=== PATIENT | female | born 1990 | race Caucasian/White ===

== ENCOUNTER 2024-12-09 14:14 | Outpatient (CLI) | payer OTHER, SELFPAY ==
[2024-12-09 10:12] LABS: HCT 30.5 % (36.0-46.0); HGB 10.2 g/dL (11.2-15.7); MCH 32.4 pg (27.0-33.0); MCHC 33.4 % (32.0-36.0); MCV 97 fL (80-95); MPV 8.3 fL (8.0-11.0); Platelet Count 198 10^3/uL (130-400); RBC 3.15 10^6/uL (3.93-5.22); RDW 13.3 % (11.7-14.6); RDW-SD 46.9 fL; WBC 14.01 10^3/uL (4.4-10.8)
== END 2024-12-09 14:15 | disposition home or self-care (01) ==
LOC: LBO 14:15
PROVIDERS: PCP Nurse Practitioner Family; Visit Provider Advanced Practice Midwife
DX: Z34.93 Encounter for supervision of normal pregnancy, unspecified, third trimester (principal); O09.523 Supervision of elderly multigravida, third trimester
CPT/HCPCS: 36415; 85027; 86787; 86850; 86900; 86901

== ENCOUNTER 2025-01-20 15:40 | Outpatient (REF) | payer OTHER, SELFPAY ==
[2025-01-20 16:26] LABS: Abs Immature Grans 0.20 10^3/uL (0.0-0.06); HCT 30.3 % (36.0-46.0); HGB 10.1 g/dL (11.2-15.7); Immature Grans % 1.4 %; MCH 32.0 pg (27.0-33.0); MCHC 33.3 % (32.0-36.0); MCV 96 fL (80-95); MPV 8.7 fL (8.0-11.0); Platelet Count 189 10^3/uL (130-400); RBC 3.16 10^6/uL (3.93-5.22); RDW 13.2 % (11.7-14.6); RDW-SD 47.2 fL; WBC 14.79 10^3/uL (4.4-10.8)
[2025-01-20 17:20] LABS: Ferritin 8 ng/mL (7-271)
[2025-01-20 18:19] LABS: Iron 88 ug/dL (50-170); Total Iron Binding Capacity 558 ug/dL (250-425); Transferrin Sat 16 % (15-50)
== END 2025-01-20 15:41 | disposition home or self-care (01) ==
LOC: LBN 15:40
PROVIDERS: PCP Nurse Practitioner Family; Visit Provider Obstetrics & Gynecology
DX: O99.013 Anemia complicating pregnancy, third trimester (principal); N93.9 Abnormal uterine and vaginal bleeding, unspecified; Z34.93 Encounter for supervision of normal pregnancy, unspecified, third trimester
CPT/HCPCS: 36415; 82728; 83540; 83550; 85025; 87081

== ENCOUNTER 2025-01-30 00:44 | Outpatient (CLI) | payer OTHER, SELFPAY ==
[2025-01-30 10:28] LABS: Total Iron Binding Capacity 528 ug/dL (250-425)
== END 2025-01-30 00:45 | disposition home or self-care (01) ==
LOC: LBO 00:44
PROVIDERS: PCP Nurse Practitioner Family; Visit Provider Obstetrics & Gynecology
DX: O99.013 Anemia complicating pregnancy, third trimester (principal)
CPT/HCPCS: 36415; 86850; 86900; 86901; 83550

== ENCOUNTER 2025-01-30 13:04 | Inpatient (IN) | payer OTHER, SELFPAY ==
--- NOTE | 2025-01-31 17:03 | W.ANESPRE ---
General Info Date of Service Date Performed: 02/01/25 Height: 5 ft 2 in Weight: 74 kg Body Mass Index (BMI): 29.8 Surgical Procedure: Operation Date: 02/01/25 07:40 Proposed Procedure Side Surgeon p Section, Possible Bi-Lat Salpingectomy Kathy Tracy, Meds Allergies and Home Medications Allergies Allergy/AdvReac Type Severity Reaction Status Date / Time No Known Allergies Allergy Verified 01/30/25 08:51 Home Medication ?Medication ?Instructions ?Recorded escitalopram oxalate 10 mg tablet 10 mg PO DAILY 06/17/24 fexofenadine 180 mg tablet 180 mg PO DAILY 06/17/24 vits 75-iron 28 mg-folic pkg PO 06/17/24 acid 800 mcg-omega3 440 mg oral pack (One Daily ) omeprazole 20 mg tablet,delayed 20 mg PO DAILY 10/18/24 release acetaminophen 325 mg tablet 325 mg PO ONCE PRN 12/09/24 calcium carbonate (Tums) 200 mg PO BID PRN 12/09/24 sennosides 8.6 mg capsule (senna) 8.6 mg PO DAILY PRN 12/09/24 ferrous sulfate 325 mg (65 mg 325 mg PO Q OTHER DAY 30 days #30 01/25/25 iron) tablet tabs docusate sodium 100 mg capsule 100 mg PO DAILY 01/27/25 folic acid 800 mcg tablet 800 mcg PO DAILY 01/27/25 Current Visit Medications: Current Medications Generic Name Dose Route Start Last Admin Trade Name Freq PRN Reason Stop Dose Admin Cefazolin Sodium/Dextrose 2 gm in 50 mls @ 100 mls/hr 02/01/25 06:00 Ancef Duplex IVPB 02/01/25 23:59 PREOP EDUAR Azithromycin 500 mg/ Sodium 250 mls @ 250 mls/hr 02/01/25 06:00 Chloride IVPB 02/01/25 23:59 PREOP EDUAR Ringer's Solution 1,000 mls @ 200 mls/hr 02/01/25 06:00 IV 02/01/25 23:59 INFUSION [facility] PFS Active Problems Active Problems: Problem Status Onset Code BRIP1 gene mutation positive Acute Z15. Genetic susceptibility to other disease Acute Z15. Generalized anxiety disorder Acute F41.1 Anemia affecting Acute O99.019 Elderly multigravida, currently Acute O09.529 History of delivery, currently Acute O34.219 Acute Z34.90 Medical History Medical History Ear fullness Nasal congestion Normal hearing exam Attempting to conceive Menorrhagia Endometriosis, unspecified Unspecified eustachian tube disorder, bilateral Eye disorder Surgical History Surgical History Status post hysteroscopic polypectomy 01/26/2024 at [facility] [[email or web address] Previous section Tobacco Smoking/Tobacco Use Status: Never Alcohol Alcohol Intake: never Prental History History 3 Para 1 Hx # Term Pregnancies 1 Multiple births 0 Hx # Pregnancies 0 Ectopic pregnancies 0 AB induced 0 Hx Number of Living Children 1 AB spontaneous 1 Past Pregnancies Del. Date GA/Weeks # Preg Succ Route Wgt Sex Labor Lgth Anesthesia Location Prov Complic 06/30/19 10 No 02/21/21 37 No Yes 3090.098 g Male 24 hrs [facility] [place] Delivery Date: 02/21/21 Last Updated by: Keisha Morales IOL for PROM, pit, epidural, c/s for arrest of dilation after 8 cm & decels, apgars 03/26/9, [place] Vital Signs and Lab Results Lab Results Complete Blood Count: WBC, (4.4-10.8) 14.79 10^3/uL H 01/20/25, 16:15 RBC, (3.93-5.22) 3.16 10^6/uL L 01/20/25, 16:15 Hgb, (11.2-15.7) 10.1 g/dL L 01/20/25, 16:15 Hct, (36.0-46.0) 30.3 % L 01/20/25, 16:15 Plt Count, (130-400) 189 10^3/uL 01/20/25, 16:15 Anesthesia Assessment and Plan Anesthesia History Personal History: No History of Anesthesia Complications Family History: No Family History of Anesthesia Complications Exercise Tolerance Exercise Tolerance: Metabolic Equivalents>4 Pertinent Negatives Pertinent Negatives: No Symptoms of GERD, No Major Cardiovascular Symptoms or Complaints, No Major Pulmonary Symptoms or Complaints and No History of CVA/TIA Cardiac & Pulmonary Exam Cardiac Exam: Normal S1/S2 Heart Sounds Pulmonary Exam: Clear Bilateral Breath Sounds Implantable Cardiac Device Does patient have a Pacemaker or an ICD?: No Airway Exam Known Difficult Airway: No Mallampati Class: 2 Mouth Opening: Normal (> 3cm) Thyromental Distance: Greater than 3 cm Neck Range of Motion: Full ROM Neck Circumference: Normal Teeth Condition: Normal Dentition ASA Classification ASA Score: ASA 2 Emergency Case?: No NPO Status NPO Status: NPO Clears >2 hours, Solids >8 hours Status Status: Not Relevant due to Medical History Anesthesia Plan Resuscitation Status: Full Code Anesthesia Technique: Spinal Anesthesia Airway Planned: Natural Airway Monitors Used: Standard Monitors
[2025-02-01] VITALS (49 sets, daily range): BP systolic 89–117; BP diastolic 45–74; PULSE 57–96; RESP 16–18; TEMP 36.6–36.9; O2SAT 95–100; BMI 29.8
[2025-02-01] MEDS: AZITHROMYCIN 500 MG in Normal Saline 250 ML 250 MG IVPB (06:39)
[2025-02-01] MEDS: Lactated Ringers 1,000 ML 200 ML IV ×2 (06:44→09:15)
--- NOTE | 2025-02-01 07:20 | W.PM.OBHPL1 ---
Date of service: 02/01/25 Time of Service: 07:20 Assessment and Plan Assessment and plan (1) History of delivery, currently : Status: Acute Assessment and plan: 30-year-old -0-1-1 at 38 weeks is dated by LMP equal to for trimester ultrasound presenting for scheduled repeat section for history of section with known send uterine window. complicated by AMA, anemia, anxiety. I reviewed the risks and benefits with patient again this morning. We reviewed that as of anytime baseline there is always a risk of bleeding, infection, and damage to surrounding tissues, as well as blood clots in legs and arms. There is also risks associated with anesthesia as well as unforeseen complications. We also discussed that there is always potential need for blood transfusion. Patient verbalized understanding and all questions were answered to the patient satisfaction. We will proceed with the procedure as planned today. OB-HPI Labor/Delivery History of Present Illness Reason for Visit: Chief Complaint: Other. [facility] Calculator Estimated Delivery Date Method Current WG Current Estimate 02/15/25 LMP (Certain) 38w 0d Other Estimates 02/16/25 Ultrasound #1 37w 6d History of Present Expected Delivery Route/Plan Planned - MD/TAY FOB/ - Geovani De La Garza (2nd child together) Pt decided 12/30 on repeat C/S w/TL - MD CROWELL- Marta Specific Issues/Plan 1. Transfer from [facility] @ 30 wks; prev C/S arrest of dilation 6'13 male at 37 wks 1a. Requested op-note and labor records from [facility] 1b. Uncertain about TOLAC, declines IOL at tertiary care center. Repeat planned at 38 weeks 2. Last PAP August 2020, nml, neg HPV 3. AMA (35 at [facility]), cfDNA low risk female; level 2 u/s [address] [facility] nml 4. Considering TL, possible oopherectomy if has repeat c/s (see [facility] consut note), consent appt w/ ___ 4a. 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 Anemia - Hgb 10.2 at 30 weeks, high iron foods discussed . Taking vits daily now. Recheck at 36 weeks. 6. Anxiety treated with Lexapro 10 mg qd 7. Breech presentation as of 32 weeks Patient planning for RLTCS on 02/01/2025 (38 wks); possible BTL? Need to do boarding sheet. *Update 01/27: pt states she is NOT planning to have TL with surgery; plans for condom use and possible vasectomy. 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 Previous section Social History Smoking/Tobacco Use Status: Never Smoking risk assessment performed?: Yes Alcohol Intake: never Drug use: Never Substance use type: does not use Household members: spouse and children Housing: house Number of Children: 1 current occupation: RN Do you think of yourself as: straight/heterosexual What is your relationship status?: Panel score (0-1 are the most socially isolated patients): 1 Do you feel safe at home: Yes Do you feel safe in your relationship?: Yes History History 3 Para 1 Hx # Term Pregnancies 1 Multiple births 0 Hx # Pregnancies 0 Ectopic pregnancies 0 AB induced 0 Hx Number of Living Children 1 AB spontaneous 1 Past Pregnancies Del. Date GA/Weeks # Preg Succ Route Wgt Sex Labor Lgth Anesthesia Location Prov Complic 06/30/19 10 No 02/21/21 37 No Yes 6 lb 13 oz Male 24 hrs [facility] Delivery Date: 02/21/21 Last Updated by: Keisha Morales IOL for PROM, pit, epidural, c/s for arrest of dilation after 8 cm & decels, apgars 03/26/9, [place] Meds Allergies and Home Medications Allergies Allergy/AdvReac Type Severity Reaction Status Date / Time No Known Allergies Allergy Verified 01/30/25 08:51 Home Medications ?Medication ?Instructions ?Recorded ?Confirmed ?Type escitalopram oxalate 10 mg tablet 10 mg PO DAILY 06/17/24 02/01/25 History fexofenadine 180 mg tablet 180 mg PO DAILY 06/17/24 01/30/25 History vits 75-iron 28 mg-folic pkg PO 06/17/24 01/30/25 History acid 800 mcg-omega3 440 mg oral pack (One Daily ) omeprazole 20 mg tablet,delayed 20 mg PO DAILY 10/18/24 01/30/25 History release acetaminophen 325 mg tablet 325 mg PO ONCE PRN 12/09/24 01/30/25 History calcium carbonate (Tums) 200 mg PO BID PRN 12/09/24 02/01/25 History sennosides 8.6 mg capsule (senna) 8.6 mg PO DAILY PRN 12/09/24 01/30/25 History ferrous sulfate 325 mg (65 mg 325 mg PO Q OTHER DAY 30 days #30 01/25/25 01/30/25 Rx iron) tablet tabs docusate sodium 100 mg capsule 100 mg PO DAILY 01/27/25 02/01/25 History folic acid 800 mcg tablet 800 mcg PO DAILY 01/27/25 02/01/25 History Exam Physical Exam Vital signs: Temp Pulse Resp BP Pulse Ox 98.2 F 78 16 101/58 L 98 02/01/25 06:49 02/01/25 06:49 02/01/25 06:49 02/01/25 06:49 02/01/25 06:49 Narrative: Well-nourished female no immediate distress Pulmonary: Clear to auscultation bilaterally no overt respiratory distress Card: No overt arrhythmias or murmurs Abdomen: Gravid, nontender Extremities: Trace edema noted equally bilaterally Psych: Appropriate and cooperative Detailed Labor and Delivery Exam Taylor Score: Cervical Points Exam 0 1 2 3 Dilation Closed 1-2cm 3-4 cm 5-6cm Effacement 0-30% 40-50% 60-70% 80% Consistency Firm Medium Soft Station -3 -2 -1,0 +1,+2 Position Posterior Mid Anterior Risk Assessment Risk for Shoulder Dystocia Historical/Initial OB: NEGATIVE FOR: Pelvic Abnormality, Pre- BMI>30, Previous Shoulder Dystocia or Previous Macrosomia Risk for Pre-Eclampsia Date Initiated/Initials: not indicated Yes, if one or more: NEGATIVE FOR: Hx Pre-E/Gest HTN, Chronic HTN, Multiple Gestation, Pre-gestational DM, Renal Disease, Systemic Lupus or APA Syndrome Yes, if 2 or more: POSITIVE FOR: Age>= 35 yrs; NEGATIVE FOR: Nulliparity, >10yr btwn pregnancies, BMI>30, ethinicty, Mother/Sister w/ Pre-E or Previous IUGR Risk for Post- Hemorrhage Initial: NEGATIVE FOR: Multiple Gestation, Previous PPH, Known Clotting Deficiency, Grand Multiparity or Anticoagulation Risks Reviewed Risks Reviewed Upon Admission: Yes
[2025-02-01] MEDS: ceFAZolin 2 GM/50 ML BAG IVPB (07:45)
[2025-02-01] MEDS: Bupivacaine 0.25% Pres-Free 30 ML VIAL (08:12)
--- NOTE | 2025-02-01 09:46 | W.PM.OP ---
Operative Note Operative Note PRE-OP DIAGNOSIS: History of section with thin lower uterine segment Same with dense adhesions PROCEDURE: section with lysis of adhesions SURGEON: Kathy Tracy ASSISTING SURGEON: Lois Jessica Refer to Anesthesia Record ESTIMATED BLOOD LOSS: 500 Patient was transported to: floor Patient's condition: stable Implants: N/A Indications: 38 weeks with history of section and documented thin lower uterine segment. Findings: Extensive adhesions throughout. Otherwise, appropriate uterus, tubes, and ovaries. Clear fluid. Viable female in cephalic presentation. Procedure Description: Patient was taken to the OR with IV fluids running.? She received 2 grams of Ancef and 500 mg of Azithromycin for prophylaxis prior to heading to the OR. Spinal anesthesia was established, and the patient was positioned into supine positioning with her arms abducted at her sides.? The vagina was prepped with Betadine.? A khan catheter was inserted using sterile technique. The abdomen was prepped with Chlorohexedine and allowed to dry for three minutes.? The patient was then draped in the usual, sterile fashion, and the bed was placed at a leftward tilt.? The abdomen was marked with the intended pfannestiel site. A timeout was performed; the patient and procedure were identified.? Testing of the levels of anesthesia was found to be adequate.?? Midline and intended incision site (over the old scar) was marked with a marking pen. 20 cc's of 0.25% Marcaine was injected into the subcuticular tissues. A Pfannenstiel incision was created with scalpel and carried down to the level of the fascia with bovie cautery.? The fascia was incised, and the incision was carried laterally with curved archibald scissors. The anterior leaf of fascia was then tented up with kocker claps, and the underlying rectus muscle was carefully dissected off with a combination of blunt and sharp dissection.? The same was done for the inferior leaf. Of note, both the inferior and superior leaves required meticulous dissection to separate the fascia from the underlying muscle as there was extensive adhesions present.? Extensive dissection was then performed to carefully identifiy the rectus and dissect off underlying peritoneum, omentum, and bladder tissues with a combination of sharp and blunt dissection. Once the rectus and underlying tissues were appropriately cleared, a bladder blade was placed.? A bladder flap was created using Metzenbaum scissors, and the bladder flap was tucked behind the bladder blade. A very distinct, thin window was appreciated in the lower uterine segment.? A low transverse incision was made using a fresh #10 blade, and the incision was extended using blunt traction.? The fluid sac was ruptured with an allis clamp, and clear fluid was noted. The fetus was presenting as a vertex. The head was brought to the level of the hysterotomy with careful attention to avoid using the incision as a fulcrum.? The rest of the body followed easily with gentle fundal pressure from the emergency medicine physician assistant. After one minute of delayed cord clamping, the cord was clamped twice and cut and the baby transferred to the warmer, awaiting the pediatric staff.? Pitocin was initiated.? Cord blood was obtained. The placenta was then delivered with assistance and fundal massage. The uterus was explored to ensure all tissue was cleared. The uterus was then exteriorized for better visualization and wrapped in a moistened lap.? Ring forceps were used to grasp the lower uterine segment, and the uterine incision was closed with a running locked layer of 0 Vicryl.? A second layer of 0 Vicryl imbricating stitch was used to secure the hysterotomy.? Two additional 0-vicryl figure-of-8 stitches were placed midline and near the left apex to secure hemostasis. ??? Each layer was carefully explored along closing, and 1 gram of TXA was administered for general oozing. Re-inspection of the hysterotomy, bladder flap, and surrounding tissues following warm irrigation aprreciated good hemostasis following TXA and pressure. Careful inspection of the rectus muscle appreciated good hemostasis.? The right apex of the fascia was secured with a kocker clamp, and the fascia was then closed with a running 0-vicryl.? A small rent in the midline of the superior leaf just above the original fascial incision was also closed with it's on running 0-vicryl stitch. Careful inspection of the subcuticular tissues appreciated good hemostasis, and this layer was closed with a running 3-0 vicryl.?Hemostasis was again confirmed.? The skin was reapproximated with a 4-0 vicryl subcuticular stitch.? The patient tolerated the procedure well.? The incision was cleaned and covered with a telfa sheet, ABD pad, and medipore tape.? She was then taken to the PACU in good condition. Counts were correct x3. Date of Procedure: 02/01/25
[2025-02-01] MEDS: NALBUPHINE 5 MG in Normal Saline 50 ML 100 MG IVPB (10:59)
[2025-02-01] MEDS: Acetaminophen 325 MG TAB 650 MG PO ×3 (12:35→23:29)
--- NOTE | 2025-02-01 12:49 | W.ANESPOSTOP ---
Postoperative Evaluation Date, Time and Location Date Performed: 02/01/25 Time Performed: 12:40 Patient Location: Obstetrics Vital Signs Most Recent Imported Vital Signs: Most Recent Vital Signs Temp Pulse Resp BP Pulse Ox 36.6 C 92 H 18 97/52 L 99 02/01/25 12:30 02/01/25 12:36 02/01/25 12:00 02/01/25 12:31 02/01/25 12:36 Pain Score Most Recent Pain Score: Most Recent Pain Score Pain Level 0 02/01/25 11:00 Assessment Mental Status: Awake (Alert & Oriented to Patient Baseline) Airway and Respiratory Function: Patent airway with normal (patient baseline) respiratory exam Cardiovascular Function: Hemodynamically Stable Hydration Status: Adequately Hydrated Nausea & Vomiting: No Nausea or Vomiting Pain: Pt. Denies Any Pain Peripheral Nerve Block: Patient did not receive a nerve block
[2025-02-01] MEDS: Ondansetron 4 MG/2 ML VIAL IVP ×2 (13:38→23:29)
[2025-02-01] MEDS: Metoclopramide 10 MG/2 ML VIAL IVP ×2 (14:49→21:04)
[2025-02-01] MEDS: Ketorolac 15 MG/ML VIAL IVP ×2 (14:49→21:04)
[2025-02-01] MEDS: Naloxone 0.4 MG/ML VIAL IVP ×2 (16:00→17:19)
[2025-02-01] MEDS: Lactated Ringers 1,000 ML 120 ML IV (17:20)
[2025-02-01] MEDS: Normal Saline Flush 10 ML SYR IVP ×2 (21:05→23:30)
[2025-02-02] MEDS: Ketorolac 15 MG/ML VIAL IVP (02:44)
[2025-02-02] MEDS: Normal Saline Flush 10 ML SYR IVP ×2 (02:45→08:30)
[2025-02-02] MEDS: Acetaminophen 325 MG TAB 650 MG PO ×3 (03:00→19:42)
[2025-02-02 03:52] VITALS: BP 119/98; PULSE 64; TEMP 36.8; O2SAT 96
[2025-02-02 08:20] VITALS: BP 93/56; PULSE 61; RESP 16; TEMP 36.9; O2SAT 98
[2025-02-02] MEDS: Docusate Sodium 100 MG CAP PO (08:29)
[2025-02-02] MEDS: Escitalopram 10 MG TAB PO (08:29)
[2025-02-02] MEDS: Ibuprofen 600 MG TAB PO ×3 (08:29→22:57)
[2025-02-02 12:00] VITALS: BP 81/45; PULSE 79; RESP 16; TEMP 37; O2SAT 98
--- NOTE | 2025-02-02 12:28 | OBPPV_ITS ---
Date of service: 02/02/25 Time of Service: 12:28 Assessment and Plan Assessment and plan (1) Status post repeat low transverse section: Status: Acute Assessment and plan: Postoperative day. No issues or concerns. Rockwell cath out. Saline lock out. Ambulate. Diet as tolerated. Anticipate discharge in the next 24 hours. Subjective Subjective Interval history: Patient seen and examined this morning. Overall doing well. Her nausea which persisted the better part of the day has now improved and resolved. She is doing well. Ambulating. Rockwell catheter will be removed. Saline lock can be removed as hemoglobin is stable at 10.0. She is breast-feeding without difficulty. Desires discharge today or tomorrow [place] baby status: Doing well and Nursing well [place] feeding status: Exclusively breast feeding Exam Physical Exam Vital signs: Temp Pulse Resp BP Pulse Ox 98.4 F 61 16 93/56 L 98 02/02/25 08:20 02/02/25 08:20 02/02/25 08:20 02/02/25 08:20 02/02/25 08:20 Vital Signs Reviewed: Yes Constitutional Constitutional: no acute distress Neck Exam Neck Exam: Normal Respiratory Exam Respiratory Exam: Normal Cardiovascular Exam Cardiovascular Exam: Normal Abdominal Exam Abdomen: Tender Comments: Dressing will be removed. Mepilex to be placed Fundal Exam Fundus: Below Umbilicus and Firm Extremities Exam Extremity Exam: Normal; negative Calf Tenderness
[2025-02-02 13:23] LABS: HCT 29.2 % (36.0-46.0); HGB 9.5 g/dL (11.2-15.7); MCH 32.2 pg (27.0-33.0); MCHC 32.5 % (32.0-36.0); MCV 99 fL (80-95); MPV 9.2 fL (8.0-11.0); Platelet Count 172 10^3/uL (130-400); RBC 2.95 10^6/uL (3.93-5.22); RDW 14.2 % (11.7-14.6); RDW-SD 50.5 fL; WBC 13.12 10^3/uL (4.4-10.8)
[2025-02-02 13:24] LABS: Abs Immature Grans 0.05 10^3/uL (0.0-0.06); Immature Grans % 0.4 %
[2025-02-02 16:00] VITALS: BP 98/64; PULSE 60; RESP 16; TEMP 36.5; O2SAT 98
[2025-02-02 20:06] VITALS: BP 102/60; PULSE 69; RESP 16; TEMP 36.7; O2SAT 97
[2025-02-02 23:03] VITALS: BP 100/63; PULSE 63; RESP 98; TEMP 36.5
[2025-02-03] MEDS: Acetaminophen 325 MG TAB 650 MG PO ×2 (02:28→07:28)
[2025-02-03] MEDS: Ibuprofen 600 MG TAB PO ×2 (04:56→09:36)
[2025-02-03 04:59] VITALS: BP 104/59; PULSE 62; RESP 16; TEMP 36.8; O2SAT 100
[2025-02-03] MEDS: Docusate Sodium 100 MG CAP PO (07:28)
[2025-02-03] MEDS: Escitalopram 10 MG TAB PO (07:28)
[2025-02-03 08:41] VITALS: BP 93/57; PULSE 66; RESP 12; TEMP 36.8; O2SAT 99
--- NOTE | 2025-02-03 10:27 | DSE_ITS ---
Date of service: 02/03/25 Time of Service: 08:00 DS: Diagnosis Discharge Diagnosis (1) Status post repeat low transverse section: Status: Acute Asessment and Plan: P2 POD#2 s/p RCS. She is doing very well and desires d/c to home. We reviewed discharge instructions and precautions/reasons to call. She will see Dr. Jessica for a post-op visit next week. Discharge Plan Disposition Patient Disposition: Home Condition: Stable Discharge Details Reason For Visit: Delivery Admit Date/Time: 01/30/25 13:04 Admit Provider: Kathy Tracy Attending Provider: Kathy Tracy Primary Care Provider: Bethanie Dueñas Home Meds and New Rx's Prescriptions: No Action omeprazole 20 mg tablet,delayed release (DR/EC) 20 mg PO DAILY acetaminophen 325 mg tablet 325 mg PO ONCE PRN calcium carbonate [Tums] 200 mg calcium (500 mg) tablet,chewable 200 mg PO BID PRN senna 8.6 mg capsule 8.6 mg PO DAILY PRN docusate sodium 100 mg capsule 100 mg PO DAILY folic acid 800 mcg tablet 800 mcg PO DAILY One Daily 28-800-440 mg-mcg-mg combo pack PO fexofenadine 180 mg tablet 180 mg PO DAILY escitalopram oxalate 10 mg tablet 10 mg PO DAILY ferrous sulfate 325 mg (65 mg iron) tablet 325 mg PO Q OTHER DAY 30 Days Qty: 30 1RF Discharge Instructions Stand Alone Forms: BC Discharge Instruc, Portal Information Activity:: no lifting >20lbs Equipment/Supplies:: No Equipment Needed Diet:: As Tolerated Discharge Orders Discharge Orders: Discharge Order (Routine); Ordered 02/03/25 Ordered By: Lucinda Ghosh Discharge Data Discharge Date/Time-TO BE ENTERED AT DEPARTURE: 02/03/25 10:04 OB:DS Summary Contraception Discussed Contraception Discussed: Yes Contraceptive Plan: Foam/Condoms, Infant Gender-Baby A: Female weight: 7 lb 0.524 oz Status at Discharge Functional status at discharge: independent ambulation Overall status at discharge: patient is back to baseline Mental Status: mental status grossly normal Speech and Movement: speech and movement normal Mood: congruent mood Affect: normal affect Quality:SDOH Health Related Social Needs: Health related social needs details N/A Health related social needs details: N/A Exam Physical Exam Vital signs: Temp Pulse Resp BP Pulse Ox 98.2 F 66 12 93/57 L 99 02/03/25 08:41 02/03/25 08:41 02/03/25 08:41 02/03/25 08:41 02/03/25 08:41 Vital Signs Reviewed: Yes Constitutional Constitutional: no acute distress and cooperative Detailed HEENT Exam Head: Present normocephalic and atraumatic Respiratory Exam Respiratory Exam: Normal Abdominal Exam Abdomen: Tender (mildly) Comments: Dressing clean & dry Fundal Exam Fundus: Below Umbilicus and Firm Extremities Exam Extremity Exam: Edema (trace) Detailed Neurological Exam Neurological: Present alert, oriented X3 and CN II-XII intact PFSH All Active Problems Status post repeat low transverse section (Acute) 02/01/2025?repeat section, female Marta BRIP1 gene mutation positive (Acute) Anemia affecting (Acute) Elderly multigravida, currently (Acute) History of delivery, currently (Acute) (Acute) Genetic susceptibility to other disease (Acute) 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, 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 Generalized anxiety disorder (Acute) Medical History Ear fullness Nasal congestion Normal hearing exam Attempting to conceive Menorrhagia Endometriosis, unspecified Unspecified eustachian tube disorder, bilateral Eye disorder Surgical History Status post hysteroscopic polypectomy 01/26/2024 at [facility] Previous section Social History Smoking/Tobacco Use Status: Never Smoking risk assessment performed?: Yes Alcohol Intake: never Drug use: Never Substance use type: does not use Household members: spouse and children Housing: house Number of Children: 1 current occupation: RN Do you think of yourself as: straight/heterosexual What is your relationship status?: Panel score (0-1 are the most socially isolated patients): 1 Do you feel safe at home: Yes Do you feel safe in your relationship?: Yes History History 3 Para 1 Hx # Term Pregnancies 1 Multiple births 0 Hx # Pregnancies 0 Ectopic pregnancies 0 AB induced 0 Hx Number of Living Children 1 AB spontaneous 1 Past Pregnancies Del. Date GA/Weeks # Preg Succ Route Wgt Sex Labor Lgth Anesth esia Location Prov Complic 06/30/19 10 No 02/21/21 37 No Yes 6 lb 13 oz Male 24 hrs [facility] Delivery Date: 02/21/21 Last Updated by: Keisha Morales IOL for PROM, pit, epidural, c/s for arrest of dilation after 8 cm & decels, apgars , [place] DS: Data Vitals/I&O Vitals and I&O: Vital Signs Temperature 98.2 F 02/03/25 08:41 Temperature Source Forehead 02/03/25 08:41 Pulse 66 02/03/25 08:41 Pulse Rhythm Regular 02/02/25 20:06 Respiratory Rate 12 02/03/25 08:41 Respiratory Depth Normal 02/02/25 20:06 Blood Pressure 93/57 L 02/03/25 08:41 Blood Pressure Mean 69 02/03/25 08:41 Pulse Oximetry 99 02/03/25 08:41 Oxygen Delivery Method Room Air 02/01/25 06:49 Oxygen Flow Rate 0 02/01/25 06:49 Pain Level 2 02/03/25 08:41 Comment Pt sleeping VS deferred until waking 02/03/25 02:00 Intake & Output 02/02/25 02/02/25 02/03/25 11:59 23:59 11:59 Output Total 350 / 1350 1000 / 1350 Balance -350 / -1350 -1000 / -1350 Output: Urine 350 / 1350 1000 / 1350 Other: Urine Color Pale Yellow Urine Appearance Clear Clear Urine Odor None Data Completed and Pending Pending Labs at Discharge: 02/02/25 05:59 WBC 13.12 H RBC 2.95 L Hgb 9.5 L Hct 29.2 L MCV 99 H MCH 32.2 MCHC 32.5 RDW 14.2 Plt Count 172 MPV 9.2 Immature Gran % 0.4 Neutrophils % 79.0 Lymphocytes % 13.4 Monocytes % 6.6 Eosinophils % 0.2 Basophils % 0.4 Absolute Neutrophils 10.38 H Absolute Lymphocytes 1.76 Absolute Monocytes 0.86 H Absolute Eosinophils 0.02 Absolute Basophils 0.05
== END 2025-02-03 10:04 | disposition home or self-care (01) | DRG 788 ==
LOC: NUR 02-01 07:25 → OBS 02-01 07:31
PROVIDERS: Obstetrics & Gynecology; Admitting Provider Obstetrics & Gynecology; PCP Nurse Practitioner Family; Visit Provider Obstetrics & Gynecology
PROC: 10D00Z1 Extraction of Products of Conception, Low, Open Approach (ICD-10-PCS; CPT 59514; principal; 2025-02-01 07:30)
DX: O34.211 Maternal care for low transverse scar from previous cesarean delivery (principal); Z37.0 Single live birth; Z3A.38 38 weeks gestation of pregnancy; O99.02 Anemia complicating childbirth; D64.9 Anemia, unspecified; O99.344 Other mental disorders complicating childbirth; Z15.02 Genetic susceptibility to malignant neoplasm of ovary; F41.1 Generalized anxiety disorder
CPT/HCPCS: 59514; 85025; J0456; J0665; J0690; J1596; J1885; J2274; J2300; J2312; J2371; J2405; J2765; J3010